=== PATIENT | female | born 1950 | race Caucasian/White ===

== ENCOUNTER 2025-05-29 13:41 | Emergency (ER) | payer BC, SELFPAY ==
[2025-05-29 13:51] VITALS: BP 146/84
--- NOTE | 2025-05-29 17:33 | ED.GENMED ---
History of Present Illness
General
Chief Complaint: DVT/Possible Blood Clot
Source: patient
Exam Limitations: none
Time Seen by Provider: 05/29/25 15:14
Nursing documentation reviewed up to this point in time: agreed with
History of Present Illness
History of Present Illness:
74-year-old female presenting to the emergency department today with concerns of right leg swelling discomfort over the past few days no specific injury. Denies any chest pain shortness of breath or any history of blood clots.
Past History
Past History
ED Past Medical History: None
Social History
Personal:
Living: with family
Review of Systems
Review of Systems
Allergies reviewed?: Yes
All Other Systems: ROS reviewed and negative except as documented in HPI and ROS
Phy Exam
Physical Exam
Physical Exam:
GENERAL: Alert , in no apparent distress
EYE: pupils equal and reactive
NECK: Supple, no significant adenopathy.
ENT: o/p clr, mmm.
CARDIAC: Regular rate and rhythm .
LUNGS: Clear breath sounds bilaterally, no acute respiratory distress, no wheezes/rales/rhonchi
ABDOMEN: Soft, without focal tenderness, no r/g, no cvat
NEUROLOGICAL: Alert and oriented, no focal neuro deficits
SKIN: Warm and dry, skin intact.
MUSCULOSKELETAL: Make swelling to the right leg no redness or warmth good range of motion of the knee well perfused.
PSYCH: Normal and appropriate interaction.
Course
Orders/Labs/Results
Orders:
Orders
05/29/25 13:58
Periph Venous Lwr Ext Rt US [US Periph Venous LOWER Ext RT] Urgent
Comment:
Reason For Exam: pain and swelling R/O DVT
05/29/25 15:29
CR Knee- Right 4 Or More View* Urgent
Comment:
Reason For Exam: knee pain
Vital Signs
Initial and Last Documented VS:
Initial Vital Signs
Temp Pulse Resp BP Pulse Ox
98.1 F 73 18 146/84 97
05/29/25 13:51 05/29/25 13:51 05/29/25 13:51 05/29/25 13:51 05/29/25 13:51
Last Documented Vital Signs
Temp Pulse Resp BP Pulse Ox
98.1 F 73 18 146/84 97
05/29/25 13:51 05/29/25 13:51 05/29/25 13:51 05/29/25 13:51 05/29/25 13:51
MDM/Problems Addressed
MDM/Problems Addressed:
74-year-old female presenting to the emergency department today with concerns of leg swelling. On arrival vital signs are normal. Ultrasound and x-ray without emergent findings. Patient without emergent findings no evidence of infection. Stable
for discharge. Return precautions given.
*Pulse Oximetry
SaO2: 97
Oxygen Mode of Delivery: Room air
Patient hypoxic: no (97)
*Critical Care Note
Total Time (30-74mins, 75-104mins- exclusive of procedures): Not Applicable
ED Attending Note
-
Portions of this chart may have been created with voice recognition software.� Occasional wrong word or��sound alike� substitutions may have occurred due to the inherent limitations of voice recognition software.
Discharge Plan
Departure
Patient Disposition: Home (Routine Discharge)
Date of Disposition: 05/29/25
Time of Disposition: 17:35
Patient with high blood pressure during this ER visit?: No
Condition: Good
Covid-19: Not Applicable
Discharge Problem:
Leg pain
Instructions: Sprain
Prescriptions:
No Action
No Current Medications
0
Referrals:
UNKNOWN - PT NOT,INTERVIEWE [Family Provider]
Activity Restrictions/Additional Instructions:
You came to the emergency department today for concerns of leg pain. Here you had reassuring assessment. Please follow closely with orthopedics. In the meantime please rest ice compress and elevate return for any worsening, new or concerning
symptoms.
Interventions
Interventions:
*Risk Screen - Suicide Last Done: 05/29/25 13:51
*Neglect/Abuse Screening Last Done: 05/29/25 13:51
Discharge Date and Time
Print Language: TAMAZIGHT
== END 2025-05-29 17:44 | disposition home or self-care (01) ==
LOC: EMR 13:41
PROVIDERS: EMERGENCY PHYSICIAN Emergency Medicine
DX: M79.661 Pain in right lower leg (principal)
CPT/HCPCS: 99284; 73564; 93971